=== PATIENT | male | born 1955 | race Caucasian/White ===

== ENCOUNTER → 2017-08-19 | Outpatient (CLI) | payer OTHER ==
--- NOTE | 2017-08-19 13:29 | Diagnostic Imaging Report ---
PROCEDURE: CT ABDOMEN AND PELVIS WITHOUT CONTRAST TECHNIQUE: The abdomen and pelvis were scanned utilizing a multidetector helical scanner from the diaphragm to the lesser trochanter. No oral or intravenous contrast was administered per renal stone protocol. Coronal and sagittal multiplanar reformations were obtained. COMPARISON: None. INDICATIONS: KIDNEY STONES FINDINGS: ABSENCE OF INTRAVENOUS CONTRAST DECREASES SENSITIVITY FOR DETECTION OF FOCAL LESIONS AND VASCULAR PATHOLOGY. LOWER THORAX: Normal. HEPATOBILIARY: Calcified granuloma in segment 7. Otherwise, no focal hepatic lesion. No intrahepatic biliary ductal dilatation. The gallbladder is unremarkable. SPLEEN: No splenomegaly. PANCREAS: No focal masses or ductal dilatation. ADRENALS: No adrenal nodules. KIDNEYS/URETERS: 5.3 cm exophytic cyst projecting from the medial aspect of the left kidney, average internal attenuation 5-10 Hounsfield units. 1.5 cm exophytic cyst projecting from the right kidney, average internal attenuation -5 to 0 Hounsfield units. No additional focal renal mass lesion. 2 mm nonobstructing right lower pole renal calculus (series 3 image 76). 3 mm nonobstructing left lower pole renal calculus seen on series 3 image 78. 5 mm nonobstructing left lower pole calculus seen on series 3 image 84. No hydronephrosis. No ureteral or bladder calculi. PELVIC ORGANS/BLADDER: The urinary bladder is unremarkable. Coarse prostatic calcifications. PERITONEUM / RETROPERITONEUM: No ascites. No pneumoperitoneum. LYMPH NODES: No pelvic sidewall, retroperitoneal, or mesenteric lymphadenopathy. VESSELS: Limited evaluation without intravenous contrast. The abdominal aorta is non-aneurysmal. Atherosclerotic calcifications of the abdominal aorta, great vessel origins, and iliac arterial systems. GI TRACT: The large bowel shows no distention or wall thickening. Diverticula scattered along the descending and sigmoid colon without wall thickening or inflammation of the surrounding mesentery. Normal appendix. No small bowel dilatation to suggest obstruction. BONES AND SOFT TISSUES: No focal soft tissue abnormalities. No osseous destructive lesions. Degenerative disc changes and facet arthropathy of the lumbar spine. IMPRESSION: Bilateral nonobstructing renal calculi measuring up to 5 mm in the left lower pole. Bilateral renal cysts, left larger than right. Atherosclerotic vascular disease. Large bowel diverticulosis without findings of diverticulitis. Dictated by: Ziggy Rees M.D. on 08/19/2017 at 13:31 Electronically approved by: Ziggy Rees M.D. on 08/19/2017 at 13:31
== END ==
LOC: CT 12:23
PROVIDERS: ATTEND Urology
DX: N20.0 Calculus of kidney (principal)
CPT/HCPCS: 74176